=== PATIENT | male | born 1940 | race Caucasian/White ===

== ENCOUNTER 2020-01-03 14:04 | Inpatient (IN) | payer OTHER, MEDICARE ==
[2020-01-03 14:46] VITALS: BMI 23.9
[2020-01-03 16:43] LABS: BASO % 1.3 % (0-2.0); HEMATOCRIT 40.1 % (35.4-49); HEMOGLOBIN 13.8 GM/dL (11.7-16.9); LYMPH % 5.9 % (8-40); MCH 32.7 pg (25.7-33.7); MCHC 34.3 g/dl (32.0-35.9); MEAN CELL VOLUME 95.5 fl (80-96); MEAN PLT VOLUME 10.2 fl (7.5-11.1); MONO % 13.9 % (3.8-10.2); NEUT % 78.9 % (42.8-82.8); PLATELET COUNT 346 K/MM3 (134-434); RDW 13.5 % (11.9-15.9); VENOUS BASE EXCESS 1.9 meq/l (-2-2); VENOUS PC02 44.3 mmHg (38-52); VENOUS PH 7.4 (7.31-7.41); VENOUS PO2 64.5 mmHg (28-48); WHITE BLOOD COUNT 10.2 K/mm3 (4.0-10.0)
[2020-01-03 17:01] LABS: INR 1.2 (0.83-1.09); PROTHROMBIN TIME (PATIENT) 14.2 SEC (9.7-13.0)
[2020-01-03 17:04] LABS: ACTIVATED PTT 26.1 SECONDS (25.2-36.5)
[2020-01-03 17:32] LABS: ALBUMIN 3.7 g/dl (3.4-5.0); BLOOD UREA NITROGEN 18.4 mg/dL (7-18); CALCIUM 9.2 mg/dL (8.5-10.1); CREATININE 1.2 mg/dL (0.55-1.3); POTASSIUM 4.1 mmol/L (3.5-5.1); TOT PROT 7.5 g/dl (6.4-8.2)
[2020-01-03 17:44] LABS: EPI CELLS 13 /uL (0-25.1); HYALINE CASTS 10 /uL (0-3.1); URINE APPEARANCE CLEAR; URINE BACTERIA 2 /uL (0-1359); URINE BILIRUBIN 1+ (NEGATIVE); URINE COLOR DK YELLOW; URINE GLUCOSE (UA) TRACE (NEGATIVE); URINE KETONE TRACE (NEGATIVE); URINE LEUK ESTERASE NEGATIVE (NEGATIVE); URINE NITRITE NEGATIVE (NEGATIVE); URINE PROTEIN 3+ (NEGATIVE); URINE RBC 11 /uL (0-23.9); URINE WBC 13 /uL (0-25.8)
[2020-01-03] MEDS ORDERED: SODIUM CHLORIDE 1,000 ML IV SCH (21:00)
[2020-01-03] MEDS ORDERED: APIXABAN 5 MG TABLET ONE (23:11)
[2020-01-03] MEDS ORDERED: ATORVASTATIN CA 20 MG TABLET (FP) ONE (23:11)
[2020-01-03] MEDS: ATORVASTATIN CA 20 MG TABLET (FP) PO SCH (23:23)
[2020-01-03] MEDS: APIXABAN 5 MG TABLET PO SCH (23:23)
[2020-01-04] MEDS ORDERED: LEVOTHYROXINE NA 125 MCG TABLET (FP) PO SCH (07:00)
[2020-01-04 07:13] LABS: INR 1.48 (0.83-1.09); PROTHROMBIN TIME (PATIENT) 17.5 SEC (9.7-13.0)
[2020-01-04 07:14] LABS: ACTIVATED PTT 39.8 SECONDS (25.2-36.5)
[2020-01-04 07:17] LABS: BASO % 0.3 % (0-2.0); EOS % 0.2 % (0-4.5); HEMATOCRIT 38.5 % (35.4-49); HEMOGLOBIN 13.3 GM/dL (11.7-16.9); LYMPH % 14.9 % (8-40); MCH 32.7 pg (25.7-33.7); MCHC 34.5 g/dl (32.0-35.9); MEAN CELL VOLUME 94.8 fl (80-96); MEAN PLT VOLUME 9.3 fl (7.5-11.1); MONO % 13.6 % (3.8-10.2); PLATELET COUNT 251 K/MM3 (134-434); RBC 4.06 M/mm3 (4.00-5.60); RDW 13.2 % (11.9-15.9)
[2020-01-04 07:51] LABS: ALBUMIN 3.4 g/dl (3.4-5.0); BILIRUBIN,TOTAL 1.3 mg/dL (0.2-1); BLOOD UREA NITROGEN 42.1 mg/dL (7-18); CALCIUM 8.8 mg/dL (8.5-10.1); MAGNESIUM 1.9 mg/dL (1.8-2.4); PHOSPHOROUS 3.6 mg/dL (2.5-4.9); POTASSIUM 4.7 mmol/L (3.5-5.1)
[2020-01-04] MEDS ORDERED: metoPROLOL SUCCINATE 25 MG TAB.SR.24H (FP) ONE (09:52)
[2020-01-04] MEDS ORDERED: ASPIRIN 81 MG CHEWABLE TABLETS ONE (09:52)
[2020-01-04] MEDS ORDERED: APIXABAN 5 MG TABLET ONE ×2 (09:52→23:12)
[2020-01-04] MEDS ORDERED: metoPROLOL SUCCINATE 25 MG TAB.SR.24H (FP) PO SCH (10:00)
[2020-01-04] MEDS ORDERED: ESCITALOPRAM OXALATE 20 MG TABLET PO SCH (10:00)
[2020-01-04] MEDS: APIXABAN 5 MG TABLET PO SCH ×2 (10:10→23:19)
[2020-01-04] MEDS: ASPIRIN 81 MG CHEWABLE TABLETS PO SCH (10:10)
[2020-01-04] MEDS ORDERED: SODIUM CHLORIDE 1,000 ML IV SCH (19:12)
[2020-01-04] MEDS ORDERED: ATORVASTATIN CA 20 MG TABLET (FP) ONE (23:12)
[2020-01-04] MEDS: ATORVASTATIN CA 20 MG TABLET (FP) PO SCH (23:19)
[2020-01-05 07:45] LABS: BASO % 0.3 % (0-2.0); EOS % 0.8 % (0-4.5); HEMATOCRIT 36.1 % (35.4-49); HEMOGLOBIN 12.5 GM/dL (11.7-16.9); LYMPH % 16.2 % (8-40); MCH 32.6 pg (25.7-33.7); MCHC 34.7 g/dl (32.0-35.9); MEAN CELL VOLUME 94.2 fl (80-96); MEAN PLT VOLUME 9.1 fl (7.5-11.1); MONO % 12.8 % (3.8-10.2); NEUT % 69.9 % (42.8-82.8); PLATELET COUNT 237 K/MM3 (134-434); RBC 3.83 M/mm3 (4.00-5.60); RDW 13.1 % (11.9-15.9); WHITE BLOOD COUNT 7.3 K/mm3 (4.0-10.0)
[2020-01-05] MEDS ORDERED: LEVOTHYROXINE NA 25 MCG TABLET (FP) ONE (08:03)
[2020-01-05] MEDS: LEVOTHYROXINE NA 100 MCG TABLET (FP) PO SCH (08:20)
[2020-01-05 08:41] LABS: ALBUMIN 3.3 g/dl (3.4-5.0); CALCIUM 8.9 mg/dL (8.5-10.1); CREATININE 1.1 mg/dL (0.55-1.3); MAGNESIUM 1.8 mg/dL (1.8-2.4); POTASSIUM 3.7 mmol/L (3.5-5.1); TOT PROT 6.8 g/dl (6.4-8.2)
[2020-01-05] MEDS ORDERED: ASPIRIN COATED 81 MG TABLET.EC ONE (09:01)
[2020-01-05] MEDS ORDERED: APIXABAN 5 MG TABLET ONE (09:02)
[2020-01-05] MEDS ORDERED: amLODIPine BESYLATE 5 MG TABLET (FP) ONE (09:02)
[2020-01-05] MEDS ORDERED: METOPROLOL TARTRATE 25 MG TABLET (FP) ONE (09:02)
[2020-01-05] MEDS ORDERED: ESCITALOPRAM OXALATE 10 MG TABLET ONE (09:03)
[2020-01-05] MEDS: amLODIPine BESYLATE 5 MG TABLET (FP) PO SCH (09:19)
[2020-01-05] MEDS: ESCITALOPRAM OXALATE 10 MG TABLET PO SCH (09:19)
[2020-01-05] MEDS: ASPIRIN 81 MG CHEWABLE TABLETS PO SCH (09:19)
[2020-01-05] MEDS: APIXABAN 5 MG TABLET PO SCH ×2 (09:19→21:43)
[2020-01-05] MEDS: METOPROLOL TARTRATE 25 MG TABLET (FP) PO SCH ×2 (09:19→21:43)
[2020-01-05] MEDS: ATORVASTATIN CA 20 MG TABLET (FP) PO SCH (21:43)
[2020-01-06] MEDS: METOPROLOL TARTRATE 25 MG TABLET (FP) PO SCH ×2 (09:57→21:18)
[2020-01-06] MEDS: ASPIRIN 81 MG CHEWABLE TABLETS PO SCH (09:57)
[2020-01-06] MEDS: amLODIPine BESYLATE 5 MG TABLET (FP) PO SCH (09:57)
[2020-01-06] MEDS: ESCITALOPRAM OXALATE 10 MG TABLET PO SCH (09:57)
[2020-01-06] MEDS: APIXABAN 5 MG TABLET PO SCH ×2 (09:57→21:18)
[2020-01-06] MEDS: ATORVASTATIN CA 20 MG TABLET (FP) PO SCH (21:18)
[2020-01-06] MEDS: THIAMINE HCL 200 MG/2 ML VIAL IVPB SCH (22:51)
[2020-01-07] MEDS: THIAMINE HCL 200 MG/2 ML VIAL IVPB SCH ×3 (06:31→21:59)
[2020-01-07] MEDS: LEVOTHYROXINE NA 100 MCG TABLET (FP) PO SCH (06:31)
[2020-01-07] MEDS: ASPIRIN 81 MG CHEWABLE TABLETS PO SCH (11:57)
[2020-01-07] MEDS: METOPROLOL TARTRATE 25 MG TABLET (FP) PO SCH ×2 (11:57→21:59)
[2020-01-07] MEDS: amLODIPine BESYLATE 5 MG TABLET (FP) PO SCH (11:57)
[2020-01-07] MEDS: APIXABAN 5 MG TABLET PO SCH ×2 (11:57→21:59)
[2020-01-07] MEDS: ESCITALOPRAM OXALATE 10 MG TABLET PO SCH (11:57)
[2020-01-07] MEDS: ATORVASTATIN CA 20 MG TABLET (FP) PO SCH (21:59)
[2020-01-08] MEDS: THIAMINE HCL 200 MG/2 ML VIAL IVPB SCH ×3 (05:28→22:26)
[2020-01-08] MEDS: LEVOTHYROXINE NA 100 MCG TABLET (FP) PO SCH (06:00)
[2020-01-08 06:49] LABS: BASO % 0.4 % (0-2.0); EOS % 1.6 % (0-4.5); HEMATOCRIT 37.1 % (35.4-49); HEMOGLOBIN 12.7 GM/dL (11.7-16.9); LYMPH % 13.9 % (8-40); MCH 32.9 pg (25.7-33.7); MCHC 34.3 g/dl (32.0-35.9); MEAN CELL VOLUME 95.9 fl (80-96); MEAN PLT VOLUME 9.4 fl (7.5-11.1); MONO % 10.6 % (3.8-10.2); NEUT % 73.5 % (42.8-82.8); PLATELET COUNT 271 K/MM3 (134-434); RBC 3.87 M/mm3 (4.00-5.60); RDW 13.2 % (11.9-15.9); WHITE BLOOD COUNT 7.7 K/mm3 (4.0-10.0)
[2020-01-08 07:10] LABS: ALBUMIN 3.7 g/dl (3.4-5.0); BILIRUBIN,TOTAL 0.9 mg/dL (0.2-1); BLOOD UREA NITROGEN 40.4 mg/dL (7-18); CALCIUM 9.2 mg/dL (8.5-10.1); CREATININE 1.3 mg/dL (0.55-1.3); POTASSIUM 3.9 mmol/L (3.5-5.1); TOT PROT 7.3 g/dl (6.4-8.2)
[2020-01-08] MEDS: ASPIRIN 81 MG CHEWABLE TABLETS PO SCH (10:15)
[2020-01-08] MEDS: ESCITALOPRAM OXALATE 10 MG TABLET PO SCH (10:15)
[2020-01-08] MEDS: APIXABAN 5 MG TABLET PO SCH ×2 (10:15→22:25)
[2020-01-08] MEDS: amLODIPine BESYLATE 5 MG TABLET (FP) PO SCH (10:15)
[2020-01-08] MEDS: METOPROLOL TARTRATE 25 MG TABLET (FP) PO SCH ×2 (10:15→22:25)
[2020-01-08] MEDS: ATORVASTATIN CA 20 MG TABLET (FP) PO SCH (22:25)
[2020-01-09] MEDS: THIAMINE HCL 200 MG/2 ML VIAL IVPB SCH ×2 (05:34→13:00)
[2020-01-09] MEDS: LEVOTHYROXINE NA 100 MCG TABLET (FP) PO SCH (07:04)
[2020-01-09] MEDS: APIXABAN 5 MG TABLET PO SCH (10:20)
[2020-01-09] MEDS: ASPIRIN 81 MG CHEWABLE TABLETS PO SCH (10:20)
[2020-01-09] MEDS: METOPROLOL TARTRATE 25 MG TABLET (FP) PO SCH (10:22)
[2020-01-09] MEDS: ESCITALOPRAM OXALATE 10 MG TABLET PO SCH (10:22)
[2020-01-09] MEDS: amLODIPine BESYLATE 5 MG TABLET (FP) PO SCH (10:23)
[2020-01-09 10:28] VITALS: BP 161/76; PULSE 61; TEMP 98.2
== END 2020-01-09 14:57 | disposition home or self-care (01) | DRG 308 ==
LOC: JER 14:04 → JERBED 19:11 → OBSVTOIN 20:22 → UNDODISIN 01-04 10:52 → J4W 01-05 18:52
PROVIDERS: ADMIT Internal Medicine; ATTEND Internal Medicine
DX: I48.91 Unspecified atrial fibrillation (principal); G93.41 Metabolic encephalopathy; N17.9 Acute kidney failure, unspecified; R50.9 Fever, unspecified; I10 Essential (primary) hypertension; E78.5 Hyperlipidemia, unspecified; E03.9 Hypothyroidism, unspecified; I44.7 Left bundle-branch block, unspecified; R00.2 Palpitations; R41.82 Altered mental status, unspecified; E11.42 Type 2 diabetes mellitus with diabetic polyneuropathy; R06.02 Shortness of breath; F03.90 Unspecified dementia, unspecified severity, without behavioral disturbance, psychotic disturbance, mood disturbance, and anxiety
CPT/HCPCS: 36415; 70450-TC; 71045-TC-FY; 71046-TC-FY; 73610-TC-RT-FY; 73630-TC-RT-FY; 80053; 81003; 82550; 82553; 82607; 82728; 82803; 83605; 83615; 83735; 84100; 84436; 84443; 84484; 85025; 85610; 85730; 87040; 87086; 87633; 87798; 87804; 93005; 93010; 99285-25; G0378; U0002